=== PATIENT | male | born 1975 | race Caucasian/White ===

== ENCOUNTER 2022-02-15 18:48 | Observation (INO) | payer OTHER ==
--- OUTSIDE RECORDS SUMMARY | 2022-02-15 18:52 | XMS REPORT | Continuity of Care Document ---
:1975 Author Organization [facility] t Address [address] [place] [address] Care Team Providers Name Role Phone Nirali BARRIOS, Jonny Primary Care Physician JONNY FATIMA Attending Clinician Unavailable JONNY FATIMA Attending Clinician Unavailable CHRISTIANA CASE Attending Clinician Unavailable Ty Alvarado DO Attending Clinician Wojciech Rowe MD Attending Clinician Christiana Case MD Attending Clinician Kang Lopez MD Attending Clinician Lili Haywood MD Attending Clinician LILI HAYWOOD Attending Clinician Unavailable GERHARD Attending Clinician Unavailable Erin Estrada Attending Clinician [phone] , Kita Surg Spec Procedure Attending Clinician Unavailable [facility], [facility] Lab Main Attending Clinician Unavailable Doctor Unassigned, [place] Attending Clinician Unavailable CHRISTIANA CASE Admitting Clinician Unavailable Christiana Case MD Admitting Clinician GERHARD Admitting Clinician Unavailable Payers Payer Name Policy Type Policy Number Effective Date Expiration Date [id number] 2019 00:00:00 [facility] [id number] 2015 00:00:00 Problems Condition Condition Condition Status Onset Resolution Last Treating Co mments Source Name Details Category Date Date Treatment Clinician Date Food bolus Food bolus Disease Active U nivrito obstructio obstructio 2-13 it y of n of n of 00:00: [place] intestine intestine 00 [facility] dionte Branch Food Food Disease Active Overview: Meghan victoria impaction impaction 2-13 Formattin i ty of of of 00:00: g of this [place] esophagus, esophagus, 00 note Me dical initial initial might be Branch encounter encounter different from the original. Added automatic ally from request for surgery [id number] Allergies, Adverse Reactions, Alerts This patient has no known allergies or adverse reactions. Social History Social Habit Start Date Stop Date Quantity Comments Source Exposure to Not sure [facility] SARS-CoV-2 (event) Medica l Branch Tobacco use and 2020-03-10 2020-03-10 Former user [facility] exposure 00:00:00 00:00:00 Medical Branch Sex [facility] At [birth year] [facility] 00:[facility] 00[facility]00:00 [facility] Branch Smoking Status Start Date Stop Date Source Never smoker [facility] Medications Ordered Filled Start Stop Current Ordering Indication Dosage Frequency Signature Comments Components Source Medication Medication Date Date Medication? Clinician (SIG) Name Name pantoprazol Yes [id number] 40mg Take 1 Univers e 40 mg EC 2 tablet by ity of tablet 00:00: mouth [place] 00 daily. Medical Branch ciprofloxac ciprofloxac No ciprofloxa [place] in 0.3 % in 0.3 % hafsa 0.3 % Co mmuni eye drops eye drops eye drops ty INSTILL 1 INSTILL 1 INSTILL 1 Hospita DROP INTO DROP INTO DROP INTO l AFFECTED AFFECTED AFFECTED Cli nics EYE(S) BY EYE(S) BY EYE(S) BY OPHTHALMIC OPHTHALMIC OPHTHALMIC ROUTE EVERY ROUTE EVERY ROUTE 2 HOURS 2 HOURS EVERY 2 WHILE AWAKE WHILE AWAKE HOURS FOR 2 DAYS FOR 2 DAYS WHILE THEN 1 DROP THEN 1 DROP AWAKE FOR EVERY 4 HRS EVERY 4 HRS 2 DAYS WHILE AWAKE WHILE AWAKE THEN 1 FOR 5 DAYS FOR 5 DAYS DROP EVERY 4 HRS WHILE AWAKE FOR 5 DAYS prednisone prednisone No 1 BID prednisone [place] 20 mg 20 mg 20 mg Communi tablet Take tablet Take tablet ty 1 tablet 1 tablet Take 1 Hospi ta twice a day twice a day tablet l by oral by oral twice a Clinic s route for 5 route for 5 day by days. days. oral route for 5 days. Immunizations Ordered Filled Immunization Date Status Comments Sour e Immunization Name Name SARS-COV-2 COVID-19 2021-02-17 Completed Unive rsity of MODERNA VACCINE 00:00:00 [facility] SARS-COV-2 COVID-19 2020-12-31 Completed Unive rsity of MODERNA VACCINE 00:00:00 [facility] Vital Signs Vital Name Observation Time Observation Value Comments Source Systolic blood 2021-04-21 15:05:00 115 mm[Hg] Univer sity of pressure [facility] Diastolic blood 2021-04-21 15:05:00 80 mm[Hg] Unive rsity of [facility] Heart rate 2021-04-21 15:05:00 59 /min [facility] Body temperature 2021-04-21 15:05:00 36.83 Faby [facility] Respiratory rate 2021-04-21 15:05:00 18 /min [facility] Body height 2021-04-21 15:05:00 190.5 cm [facility] Body weight 2021-04-21 15:05:00 102.967 kg [facility] BMI 2021-04-21 15:05:00 28.37 kg/m2 [facility] Oxygen saturation in 2021-04-21 15:05:00 99 /min [facility] Arterial blood by [facility] Pulse oximetry Branch BP Diastolic 2020-04-17 00:00:00 76 mm[Hg] [facility] s Height 2020-04-17 00:00:00 74 [in_i] [facility] s BMI (Body Mass 2020-04-17 00:00:00 28 kg/m2 [facility]) [facility] s BP Systolic 2020-04-17 00:00:00 131 mm[Hg] [facility] s Body Weight 2020-04-17 00:00:00 3491.2 [oz_av] [facility] s Procedures This patient has no known procedures. Plan of Care Planned Activity Planned Date Details Comments Source [facility] Start End Encounter Admission Attending Care Care Encounter Source Date/Time Date/Time Type Type Clinicians Facility Department ID 2021-04-21 2021-04-21 Outpatient R ALEENA FATIMAJERSEYDemianJagdeep [facility] [id number] Univers 09:00:00 09:39:52 JONNY FATIMA ity of [facility] 2021-04-21 2021-04-21 Office Nirali [facility] [id number] Univers 09:00:00 09:39:52 Visit Emdemianjagdeep GEORGINA [id number] ity [id number] [phone] Md dical NAL 044 [facility] 2021-03-29 2021-03-29 Outpatient X [facility] JOSE [id number] Univers 09:50:00 21:00:00 ity of [facility] 2021-03-29 2021-03-29 Emergency Ty Alvarado [id number] Univers 09:50:00 21:00:00 Wojciech Rowe [id number] [facility]y [facility] [id number] [place] [phone] [facility] [address] [place] 2021-03-29 2021-03-29 Surgery AMI Lopez [id number] Univers 15:35:00 16:41:00 Kang PHILLIPS [id number] it y of [facility] [id number] [place] [phone] [facility] 103 Branch 2020-06-09 2020-06-09 [facility] [id number] Univers 07:58:16 08:13:16 Visit Lili Cano [id number] i [id number] [phone] Md dical nal 204 Branch [facility] 2020-06-09 2020-06-09 Outpatient R YOBANY [facility] [id number] Univers 08:00:00 08:00:00 [facility] 2020-04-17 2020-04-17 Outpatient SCHAUBROECK [facility] 101 [id number] [place] 12:17:00 12:17:00 _L 0304 [facility] 2020-04-17 2020-04-17 Outpatient Sean [facility] [id number] 00:00:00 00:00:00 Erin [id number] 2020-04-17 2020-04-17 Erin [facility] [place] - [place] 04 [place] 00:00:00 00:00:00 Sean [facility] MENTAL HEALTH TECH-BOAT CANVAS INSTALLER-C: Hospital - ty [address] [facility], [facility] Clinics [address], [place] [address] , Ph. 2020-03-10 2020-03-10 Office Lili Haywood [facility] [id number] Univers 15:16:34 17:11:00 Visit Rm, Adc Surg Spec Procedure [place] 3 [id number] it[id number] [phone] Md dical nal 204 [facility] 2020-03-10 2020-03-10 Outpatient R YOBANY [facility] [id number] Univers 15:30:00 15:30:00 [facility] 2020-03-05 2020-03-05 Outpatient R YOBANY [facility] [id number] Univers 09:15:00 09:15:00 [facility] 2020-03-05 2020-03-05 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 Cleaner Kita Caruso Lab Main [facility] [id number] Univers 08:59:17 09:14:17 Visit Liil Haywood [id number] ity [id number] [phone] Md dical nal 353 [facility] 2019-12-24 2019-12-24 Office Yobany [facility] [id number] Univers 09:54:39 10:23:45 Visit Lili Cano [id number] destiney dumont [facility] [id number] [phone] Md dical [address] 2019-12-24 2019-12-24 Outpatient R YOBANY [facility] [id number] Univers 10:00:00 10:00:00 LILI vaca [facility] 2019-12-24 2019-12-24 Orders Doctor MONICA [id number] Univers 00:00:00 00:00:00 Only Unassigned, JACQUELINE [id number] ity of [place] [facility] [id number] [place] [phone] [place] [address] Branch Results This patient has no known results.
[2022-02-15] MEDS ORDERED: NA CHLORIDE 0.9% 1,000 ML ONE (19:24)
[2022-02-15 19:46] LABS: Absolute Lymphocytes (CBC) 2.2 K/uL (0.7-4.9); Hematocrit 50.6 % (39.6-49.0); Lymphocytes % 16.8 % (15.3-44.8); MCV 88.7 fL (80-100); MPV 7.2 fL (7.6-11.3)
[2022-02-15 19:51] LABS: Protime INR 1.13
[2022-02-15 20:10] LABS: Bilirubin Direct 0.1 mg/dL (0-0.2); Bilirubin Total 0.3 mg/dL (0.2-1.0); Magnesium 1.6 mg/dL (1.6-2.4); Potassium 3.6 mmol/L (3.5-5.1); Protein, Total 7.8 g/dL (6.4-8.2); Troponin High Sensitivity 7.1 pg/mL (<58.9)
--- NOTE | 2022-02-15 20:16 | RAD REPORT ---
EXAM DESCRIPTION: CT - Head C Spine Mpr Wo Con - 02/15/2022 8:05 pm CLINICAL HISTORY: Head and neck injury status post fall. Head and neck pain COMPARISON: None. TECHNIQUE: Computed axial tomography of the head and cervical spine was obtained. Sagittal and coronal reconstruction was performed. All CT scans are performed using dose optimization technique as appropriate and may include automated exposure control or mA/KV adjustment according to patient size. FINDINGS: An intracranial bleed is not seen. The ventricles are normal in caliber. An extra-axial fluid collection is not noted.Fluid within the v isualized sinuses and mastoids is not seen A cervical fracture is not visualized. No dislocation is noted. Congenital nonunion posterior element s C1 IMPRESSION: No acute intracranial abnormality is seen. A cervical fracture is not visualized. If the patient continues to have symptoms to suggest intracra nial /spinal cord pathology then MRI would be recommended
--- NOTE | 2022-02-15 20:16 | RAD REPORT ---
EXAM DESCRIPTION: Sunny Single View02/15/2022 7:34 pm CLINICAL HISTORY: Chest pain COMPARISON: none FINDINGS: The lungs appear clear of acute infiltrate. The heart is normal size IMPRESSION: No acute abnormalities displayed
--- NOTE | 2022-02-15 20:55 | EDPHYS ---
Physician Documentation [facility] Name: Williams Diallo Age: 46 yrs Sex: Male : 1975 Arrival Date: 02/15/2022 Time: 18:49 Bed 7 Private MD: ED Physician Lokesh Granado HPI: 02/15 19:10 This 46 yrs old Male presents to ER via EMS with complaints of Syncope. cp 19:10 The patient has experienced syncope, lost consciousness. Onset: The symptoms/episode cp began/occurred just prior to arrival. Duration: This was a single episode, that lasted 1 minute(s). 19:10 Context: the episode(s) was witnessed, by co-worker(s), occurred at work, occurred cp while the patient was standing, Just prior to the episode the patient experienced dizziness, lightheadedness. Associated injury: Head/face: forehead and right anabaptism, abrasion. Associated signs and symptoms: Pertinent negatives: abdominal pain, chest pain, diaphoresis, headache, seizure, vomiting. Current symptoms: Currently, the patient is not experiencing any symptoms, the patient feels back to baseline. Historical: - Allergies: 18:49 No Known Allergies; ll1 - PMHx: 18:49 None; ll1 - PSHx: 18:49 None; ll1 - Immunization history:: Client reports having NOT received the Covid vaccine. - Social history:: Smoking status: Reported history of juuling and/or vaping. Patient denies any tobacco usage or history of. ROS: 19:15 Constitutional: Negative for body aches, chills, fever, poor PO intake. cp 19:15 Eyes: Negative for injury, pain, redness, and discharge. cp 19:15 ENT: Negative for drainage from ear(s), ear pain, sore throat, difficulty swallowing, difficulty handling secretions. 19:15 Cardiovascular: Negative for chest pain, palpitations. 19:15 Respiratory: Negative for cough, shortness of breath, wheezing. 19:15 Abdomen/GI: Negative for abdominal pain, nausea, vomiting, and diarrhea, black/tarry stool, rectal bleeding. 19:15 Neuro: Positive for syncope, Negative for altered mental status, headache, numbness, weakness. 19:15 All other systems are negative. Exam: 19:20 Constitutional: The patient appears in no acute distress, alert, awake, cp non-diaphoretic, non-toxic, well developed, well nourished. 19:20 Head/face: Noted is abrasion(s), that are moderate, of the forehead and right anabaptism. cp 19:20 Eyes: Periorbital structures: appear normal, Pupils: equal, round, and reactive to light and accomodation, Extraocular movements: intact throughout, Sclera: no appreciated abnormality, Lids and lashes: appear normal, bilaterally. 19:20 ENT: External ear(s): are unremarkable, Ear canal(s): are normal, clear, TM's: dullness, bilaterally, Nose: is normal, Mouth: Lips: moist, Oral mucosa: pink and intact, moist. 19:20 Neck: C-spine: vertebral tenderness, is not appreciated, crepitus, is not appreciated, ROM/movement: is normal, is supple, without pain, no range of motions limitations, no meningismus, no nuchal rigidity. 19:20 Chest/axilla: Inspection: normal. 19:20 Cardiovascular: Rate: normal, Rhythm: regular, Edema: is not appreciated, JVD: is not appreciated. 19:20 Respiratory: the patient does not display signs of respiratory distress, Respirations: normal, no use of accessory muscles, no retractions, labored breathing, is not present, Breath sounds: are clear throughout, no decreased breath sounds, no stridor, no wheezing. 19:20 Abdomen/GI: Inspection: abdomen appears normal, Palpation: abdomen is soft and non-tender, in all quadrants. 19:20 Back: pain, is absent, ROM is normal. 19:20 Neuro: Orientation: to person, place \T\ time. Mentation: is normal, Cerebellar function: Romberg testing is negative, Motor: moves all fours, strength is normal, Sensation: is normal. 19:42 ECG was reviewed by the Attending Physician. cp Vital Signs: 18:49 BP 98 / 74; Pulse 78; Resp 18; Temp 97.0(TE); Pulse Ox 96% on R/A; Weight 102.06 kg; ll1 Height 6 ft. 3 in. (190.50 cm); Pain 0/10; 19:30 BP 99 / 78; Pulse 90; Resp 17; Pulse Ox 99% on R/A; ll3 20:40 BP 108 / 70; Pulse 70; Resp 16; Pulse Ox 95% on R/A; ll3 18:49 Body Mass Index 28.12 (102.06 kg, 190.50 cm) ll1 NIH Stroke Scale Scores: 18:49 NIHSS Score: 1 ll1 MDM: 19:07 Patient medically screened. cp 20:50 Data reviewed: vital signs, nurses notes, lab test result(s), EKG, radiologic studies, cp CT scan, plain films. 20:50 Test interpretation: by ED physician or midlevel provider: ECG, plain radiologic cp studies. Counseling: I had a detailed discussion with the patient and/or guardian regarding: the historical points, exam findings, and any diagnostic results supporting the discharge/admit diagnosis, lab results, radiology results, the need for further work-up and treatment in the hospital. Physician consultation: Javier MCKEON was contacted at 20:45, regarding admission, to the telemetry unit. patient's condition, and will see patient in ED. 02/15 19:07 Order name: Basic Metabolic Panel; Complete Time: 20:19 cp / 20:19 Interpretation: Normal except: GLUC 171; CRE 1.41; GFR 63. cp 02/15 19:07 Order name: CBC with Diff; Complete Time: 20:19 cp 02/15 20:19 Interpretation: Normal except: WBC 13.30; RBC 5.70; HCT 50.6; MPV 7.2; ILSA% 74.9; NEUT cp A 9.9. 02/15 19:07 Order name: LFT's; Complete Time: 20:19 cp 02/15 19:07 Order name: Magnesium; Complete Time: 20:19 cp 02/15 19:07 Order name: NT PRO-BNP; Complete Time: 20:19 cp 02/15 19:07 Order name: PT-INR; Complete Time: 20:19 cp 02/15 19:07 Order name: Troponin HS; Complete Time: 20:19 cp / 20:26 Order name: Urine Microscopic Only; Complete Time: 22:16 cp 02/15 20:50 Order name: D-Dimer cp 02/15 20:52 Order name: LAB Add On cp 02/15 20:52 Order name: COVID-19/FLU A+B cp 02/15 21:01 Order name: Urine Dipstick-Ancillary; Complete Time: 22:16 EDMS 02/16 01:00 Order name: Troponin High Sensitivity EDMS 02/16 05:50 Order name: Troponin High Sensitivity EDMS 02/15 19:07 Order name: XRAY Chest (1 view); Complete Time: 20:19 cp 02/15 19:07 Order name: EKG; Complete Time: 19:08 cp 02/15 19:07 Order name: Cardiac monitoring; Complete Time: 19:38 cp 02/15 19:07 Order name: EKG - Nurse/Tech; Complete Time: 19:38 cp 02/15 19:07 Order name: IV Saline Lock; Complete Time: 19:38 cp 02/15 19:07 Order name: Labs collected and sent; Complete Time: 19:38 cp 02/15 19:07 Order name: O2 Per Protocol; Complete Time: 19:38 cp 02/15 19:07 Order name: O2 Sat Monitoring; Complete Time: 19:38 cp 02/15 19:09 Order name: CT Head C Spine; Complete Time: 20:19 cp 02/15 20:20 Interpretation: Reviewed report. cp 02/15 20:26 Order name: Urine Dipstick-Ancillary (obtain specimen); Complete Time: 21:00 cp 02/15 23:22 Order name: CT Chest For PE Angio ld1 02/15 23:26 Order name: US Extremity Venous W Compression Lawrence cp 02/16 05:54 Order name: Basic Metabolic Panel EDMS 02/16 05:55 Order name: CBC with Automated Diff EDMS 02/16 08:53 Order name: US EDMS EC:42 Rate is 80 beats/min. Rhythm is regular. KS interval is normal. QRS interval is normal. cp QT interval is normal. T waves are Inverted in lead aVR. Interpreted by me. Reviewed by me. Administered Medications: 19:38 Drug: NS 0.9% 1000 ml Route: IV; Rate: 1 bolus; Site: left antecubital; ll3 02/16 00:30 Follow up: Response: No adverse reaction; IV Status: Completed infusion; IV Intake: ll3 1000ml Disposition Summary: 02/15/22 20:54 Hospitalization Ordered Hospitalization Status: Observation cp Provider: Jean-Pierre Barton cp Condition: Stable cp Problem: new cp Symptoms: have improved cp Bed/Room Type: Standard cp Location: [facility] ER HOLD(02/15/22 23:04) bb Room Assignment: ERHOLD-(02/15/22 23:04) bb Diagnosis - Syncope cp Discharge Instructions: - Discharge Summary Sheet ll1 Forms: - Medication Reconciliation Form cp - SBAR form cp - Work release form ll1 NIH Stroke Scale - NIH Stroke Score Date: 02/15/2022 Time: 18:49 Total Score = 1 1a. Level of Consciousness (LOC) - 0(Alert) 1b. Level of Consciousness (LOC) (Month \T\ Age) - 0(Both) 1c. LOC Commands (Open \T\ Closes Eyes/Community Marketing Manager) - 0(Both) 2. Best Gaze (Lateral Gaze Paresis) - 0(Normal) 3. Visual Field Loss - 0(No visual loss) 4. Facial Palsy - 0(Normal) 5a. Left Arm: Motor (10-second hold) - 0(No drift) 5b. Right Arm: Motor (10-second hold) - 0(No drift) 6a. Left Leg: Motor (5-second hold - always test supine) - 0(No drift) 6b. Right Leg: Motor (5-second hold - always test supine) - 0(No drift) 7. Limb Ataxia (finger/nose \T\ heel/lockwood - test with eyes open) - 0(Absent) 8. Sensory Loss (pinprick arms/legs/face) - 0(Normal) 9. Best Language: Aphasia (description/naming/reading) - 0(No aphasia) 10. Dysarthria (speech clarity - read or repeat words) - 0(Normal) 11. Extinction and Inattention (visual/tactile/auditory/spatial/personal) - 1(Present) Initials: ll1 Signatures: Dispatcher [employer] EDMS Amira Whyte RN RN bb Javier Prater, BARTENDER HELPER-C BARTENDER HELPER-Cla1 Lokesh Harrington PA PA cp Lewis, Lynsay, RN RN ll1 Baldemar Dean RN RN ll3 Corrections: (The following items were deleted from the chart) 02/15 23:04 20:54 Telemetry/MedSurg (observation) cp zander 23:04 20:54 cp zander
--- NOTE | 2022-02-15 20:55 | ER ---
Nurse's Notes [facility] Name: Williams Diallo Age: 46 yrs Sex: Male : 1975 Arrival Date: 02/15/2022 Time: 18:49 Bed 7 Private MD: Diagnosis: Syncope Presentation: 02/15 18:49 Chief complaint: Patient states: Syncopal event while at work. Witnessed standing, felt ll1 dizzy, then fell to carpeted floor. Passed out for approximately 30 seconds. Abrasions noted to R side of forehead. EMS states: Pale and diaphoretic en route. BP was low during ride here 80's systolic. No medical history, no everyday meds. O2 6L NC given. Coronavirus screen: Vaccine status: Patient reports being unvaccinated. Client denies travel out of the [place] in the last 14 days. fatigue, nausea. Ebola Screen: Patient denies travel to an Ebola-affected area in the 21 days before illness onset. Initial Sepsis Screen: Does the patient meet any 2 criteria? No. Patient's initial sepsis screen is negative. Does the patient have a suspected source of infection? No. Patient's initial sepsis screen is negative. Risk Assessment: Do you want to hurt yourself or someone else? Patient reports no desire to harm self or others. Onset of symptoms was February 15, 2022. 18:49 Method Of Arrival: EMS: [facility] ll1 18:49 Acuity: KYLIE 2 ll1 Triage Assessment: 18:55 General: Appears in no apparent distress. Behavior is calm, cooperative, appropriate ll1 for age. Pain: Denies pain. Neuro: Reports dizziness, a syncopal episode weakness. Cardiovascular: No deficits noted. Respiratory: No deficits noted. GI: Reports nausea. Historical: - Allergies: 18:49 No Known Allergies; ll1 - PMHx: 18:49 None; ll1 - PSHx: 18:49 None; ll1 - Immunization history:: Client reports having NOT received the Covid vaccine. - Social history:: Smoking status: Reported history of juuling and/or vaping. Patient denies any tobacco usage or history of. Screenin/03 00:35 [facility] ED Fall Risk Assessment (Adult) History of falling in the last 3 months, ll3 including since admission Yes- single mechanical fall (1 pt) Confusion or Disorientation No (0 pts) Intoxicated or Sedated No (0 pts) Impaired Gait No (0 pts) Mobility Assist Device Used No (0 pt) Altered Elimination No (0 pt) Score/Fall Risk Level 0 - 2 = Low Risk Oriented to surroundings, Maintained a safe environment, Educated pt \T\ family on fall prevention, incl call for assistance when getting out of bed. Abuse screen: Denies threats or abuse. Denies injuries from another. Nutritional screening: No deficits noted. Tuberculosis screening: No symptoms or risk factors identified. Assessment: 02/15 19:20 General: Appears uncomfortable, Behavior is calm, cooperative. Pain: Complains of pain ll3 in face. Neuro: Level of Consciousness is awake, alert, obeys commands, Oriented to person, place, time, situation. Cardiovascular: Rhythm is sinus rhythm. Respiratory: Respiratory effort is even, unlabored, Respiratory pattern is regular, symmetrical. Derm: Rash noted that is red, on face. Vital Signs: 18:49 BP 98 / 74; Pulse 78; Resp 18; Temp 97.0(TE); Pulse Ox 96% on R/A; Weight 102.06 kg; ll1 Height 6 ft. 3 in. (190.50 cm); Pain 0/10; 19:30 BP 99 / 78; Pulse 90; Resp 17; Pulse Ox 99% on R/A; ll3 20:40 BP 108 / 70; Pulse 70; Resp 16; Pulse Ox 95% on R/A; ll3 18:49 Body Mass Index 28.12 (102.06 kg, 190.50 cm) ll1 NIH Stroke Scale Scores: 18:49 NIHSS Score: 1 ll1 ED Course: 18:49 Patient arrived in ED. ll1 18:49 Arm band placed on Patient placed in an exam room, on a stretcher. ll1 18:55 Triage completed. ll1 18:55 Lokesh Harrington [facility]. cp 18:55 Noelle William MD is Attending Physician. cp 19:11 Lokesh Granado MD is Attending Physician. cp 19:11 Grace Coto is Primary Nurse. tw5 19:36 XRAY Chest (1 view) In Process Unspecified. EDMS 19:38 Initial lab(s) drawn, by me, sent to lab. Inserted saline lock: 22 gauge in left ll3 antecubital area, using aseptic technique. Blood collected. 20:07 CT Head C Spine In Process Unspecified. EDMS 20:54 Jean-Pierre Barton MD is Hospitalizing Provider. cp 02/16 00:36 Patient has correct armband on for positive identification. Placed in gown. Bed in low ll3 position. Call light in reach. Side rails up X 1. Adult w/ patient. 00:36 No provider procedures requiring assistance completed. Patient admitted, IV remains in ll3 place. Administered Medications: 02/15 19:38 Drug: NS 0.9% 1000 ml Route: IV; Rate: 1 bolus; Site: left antecubital; ll3 02/16 00:30 Follow up: Response: No adverse reaction; IV Status: Completed infusion; IV Intake: ll3 1000ml Medication: 00:36 VIS not applicable for this client. ll3 Intake: 00:30 IV: 1000ml; Total: 1000ml. ll3 Outcome: 02/15 20:54 Decision to Hospitalize by Provider. cp 02/16 00:36 Admitted to ER Hold. Please see [employer] for further documentation. ll3 Condition: stable Instructed on the need for admit. 12:31 Patient left the ED. ll1 NIH Stroke Scale - NIH Stroke Score Date: 02/15/2022 Time: 18:49 Total Score = 1 1a. Level of Consciousness (LOC) - 0(Alert) 1b. Level of Consciousness (LOC) (Month \T\ Age) - 0(Both) 1c. LOC Commands (Open \T\ Closes Eyes/Fish Farmer) - 0(Both) 2. Best Gaze (Lateral Gaze Paresis) - 0(Normal) 3. Visual Field Loss - 0(No visual loss) 4. Facial Palsy - 0(Normal) 5a. Left Arm: Motor (10-second hold) - 0(No drift) 5b. Right Arm: Motor (10-second hold) - 0(No drift) 6a. Left Leg: Motor (5-second hold - always test supine) - 0(No drift) 6b. Right Leg: Motor (5-second hold - always test supine) - 0(No drift) 7. Limb Ataxia (finger/nose \T\ heel/lockwood - test with eyes open) - 0(Absent) 8. Sensory Loss (pinprick arms/legs/face) - 0(Normal) 9. Best Language: Aphasia (description/naming/reading) - 0(No aphasia) 10. Dysarthria (speech clarity - read or repeat words) - 0(Normal) 11. Extinction and Inattention (visual/tactile/auditory/spatial/personal) - 1(Present) Initials: ll1 Signatures: Dispatcher [employer] EDMS Lokesh Harrington PA PA cp Lewis, Lynsay RN RN ll1 Grace Coto tw5 Baldemar Dean RN RN ll3
[2022-02-15 21:00] LABS: Urine Blood Trace-intact (Negative); Urine Glucose Negative (Negative); Urine Protein 2+ (Negative); Urine Specific Gravity 1.025 (1.005-1.030)
[2022-02-15 21:18] LABS: Urine Bacteria None Seen /HPF (<20); Urine Mucus 1+ /HPF (None Seen); Urine RBC <5 /HPF (None Seen)
[2022-02-15 22:21] LABS: SARS-COV-2 RT PCR NEGATIVE (NEGATIVE)
--- NOTE | 2022-02-15 22:29 | P.HP ---
Certification for Inpatient Patient admitted to: Observation With expected LOS: <2 Midnights Patient will require the following post-hospital care: None Practitioner: I am a practitioner with admitting privileges, knowledge of patient current condition, hospital course, and medical plan of care. Services: Services provided to patient in accordance with Admission requirements found in Title 42 Section 412.3 of the Code of Federal Regulations <MoiJavier Rosario - Last Filed: 02/15/22 22:27> Patient History Date of Service: 02/15/22 Reason for admission: Syncope History of Present Illness: 46-year-old otherwise healthy male presented to the emergency department after having a syncopal event at work. He reports the event took place over the course for approximately 30 minutes and began with itching of the right hand followed by itching of all the extremities, he began to walk around as he felt this may make him feel better he began to feel lightheaded as if he is in a pass out so he sat into a chair followed by losing consciousness. He fell and hit his head on the floor he reports positive LOC. Prior to episode of syncope he denies any palpitations, chest pain, headache. He denies any abdominal pain. Upon arrival to the ED patient's blood pressure was soft 90s systolic. He was evaluated in the emergency department his labs were significant for mild leukocytosis, creatinine 1.41, GFR 63, glucose 171. Chest x-ray negative for acute findings CT head/C-spine also negative for acute findings. ED provider wishes to admit under observation for syncope. - Past Medical/Surgical History -: None -: None Psychosocial/ Personal History: Patient was at home with family - Family History Family History: Reviewed- Non-Contributory - Social History Smoking Status: Never smoker Alcohol use: No CD- Drugs: No Caffeine use: Yes Place of Residence: Home <Javier Prater - Last Filed: 02/15/22 22:27> Date of Service: 02/16/22 <Jean-Pierre Barton - Last Filed: 02/16/22 12:57> Review of Systems 10-point ROS is otherwise unremarkable Cardiovascular: Light Headedness, Other (Syncope), As per HPI <Javier Prater - Last Filed: 02/15/22 22:27> Physical Examination - Physical Exam General: Alert, In no apparent distress, Oriented x3 HEENT: Atraumatic, PERRLA, Mucous membr. moist/pink, EOMI, Sclerae nonicteric Neck: Supple, 2+ carotid pulse no bruit, No LAD, Without JVD or thyroid abn ormality Respiratory: Clear to auscultation bilaterally, Normal air movement Cardiovascular: No edema, Regular rate/rhythm, Normal S1 S2 Capillary refill: <2 Seconds Gastrointestinal: Normal bowel sounds, No tenderness Musculoskeletal: No tenderness Integumentary: No rashes Neurological: Normal speech, Normal strength at 5/5 x4 extr, Normal tone, Normal affect - Studies Laboratory Data (last 24 hrs) 02/15/22 19:31: PT 12.4, INR 1.13 02/15/22 19:31: WBC 13.30 H, Hgb 17.4, Hct 50.6 H, Plt Count 355 02/15/22 19:31: Sodium 137, Potassium 3.6, BUN 17, Creatinine 1.41 H, Glucose 171 H, Magnesium 1.6, Total Bilirubin 0.3, AST 20, ALT 43, Alkaline Phosphatase 49 <Javier Prater - Last Filed: 02/15/22 22:27> - Studies Laboratory Data (last 24 hrs) 02/15/22 19:31: PT 12.4, INR 1.13 02/15/22 19:31: WBC 13.30 H, Hgb 17.4, Hct 50.6 H, Plt Count 355 02/15/22 19:31: Sodium 137, Potassium 3.6, BUN 17, Creatinine 1.41 H, Glucose 171 H, Magnesium 1.6, Total Bilirubin 0.3, AST 20, ALT 43, Alkaline Phosphatase 49 <Jean-Pierre Barton - Last Filed: 02/16/22 12:57> Assessment and Plan - Plan Assessment: Syncope Plan: Syncope: Unclear etiology, will monitor on telemetry for any arrhythmias, trend troponins. Echocardiogram is ordered. Continue IV fluids we will obtain orthostatic vital signs. Patient states still feeling "weak". He denies any chest pain, palpitations or headache. DVT PPX: Lovenox Code status: Full Discharge Plan: Home Plan to discharge in: 24 Hours - Advance Directives Does patient have a Living Will: No Does patient have a Durable POA for Healthcare: No - Code Status/Comfort Care Code Status Assessed: Yes (Full code) Critical Care: No Time Spent Managing Pts Care (In Minutes): 55 <Javier Prater - Last Filed: 02/15/22 22:27> Physician Review: Patient Assessed, Agree with Above Assessment and Plan <Jean-Pierre Barton - Last Filed: 02/16/22 12:57>
[2022-02-16] MEDS: Ringers Lactate 1,000 ML IV SCH ×2 (00:11→10:11)
[2022-02-16] MEDS ORDERED: ONDANSETRON 4 MG/2 ML VIAL IV PRN (00:11)
[2022-02-16] MEDS ORDERED: ACETAMINOPHEN 500 MG TAB PO PRN (00:11)
[2022-02-16] MEDS ORDERED: Ringers Lactate 1,000 ML IV ONE ×2 (00:19→07:59)
[2022-02-16 00:36] VITALS: BMI 28.1
[2022-02-16 05:46] LABS: Absolute Lymphocytes (CBC) 2.4 K/uL (0.7-4.9); Hematocrit 40.3 % (39.6-49.0); Lymphocytes % 41.3 % (15.3-44.8); MCV 88.1 fL (80-100); MPV 7.1 fL (7.6-11.3); RBC Red Blood Cell Count 4.58 M/uL (4.33-5.43)
[2022-02-16 05:47] LABS: Potassium 4.2 mmol/L (3.5-5.1)
[2022-02-16] MEDS ORDERED: ENOXAPARIN 40 MG/0.4 ML SQ ONE (07:59)
--- NOTE | 2022-02-16 08:32 | EKG ---
Test Date: 2022-02-15 Test Time: 19:36:34 Special Projects Coordinator: RV MEASUREMENT RESULTS: Intervals: Rate: 80 MA: 172 QRSD: 82 QT: 360 QTc: 415 [place]: P: 64 MA: 172 QRS: 56 T: 16 INTERPRETIVE STATEMENTS: Normal sinus rhythm with sinus arrhythmia Low voltage QRS Borderline ECG No previous ECG available for comparison Electronically Signed On 02-16-22 08:31:09 CONCRETE GUN OPERATOR by Frank Collins
--- NOTE | 2022-02-16 08:53 | RAD REPORT ---
EXAM DESCRIPTION: USExtrem Venous W Compress Bil02/16/2022 12:18 am CLINICAL HISTORY: Elevated D-dimer COMPARISON: none FINDINGS: The common femoral, superficial femoral, greater saphenous, popliteal and posterior tibial veins bilaterally are compressible and demonstrate augmentation. Doppler demonstrates good flow. Grayscale, color and spectral analysis performed on all vessels IMPRESSION: No evidence of deep venous thrombosis involving either lower extremity.
[2022-02-16] MEDS ORDERED: ENOXAPARIN 40 MG/0.4 ML SQ SCH (09:00)
--- NOTE | 2022-02-16 12:09 | P.DS ---
Admission Date: 02/15/22 Discharge Date: 02/16/22 Disposition: ROUTINE DISCHARGE Discharge Condition: GOOD Reason for Admission: Syncope Consultations: 1. Cardiology Hospital Course: DIAGNOSES: # Syncope, suspect Vasovagal # KDIGO Stage I Acute Kidney Injury (resolved) # Elevated D-Dimer HOSPITAL COURSE: Mr. Williams Diallo is a pleasant 46 year old male with no reported past medical history who was admitted to the [facility] on 02/15/2022 for syncope. He was admitted to the Medicine service. During his hospitalization, he expe rienced no recurrent episodes of syncope. His orthostatic vital signs were negative. His CT head/cervical spine revealed, "no acute intracranial abnormality is seen." His d-dimer returned elevated at 13,751. Bilateral lower extremity Doppler revealed, "no evidence of deep venous thrombosis involving either lower extremity." His CT chest angiogram revealed, "no pulmonary embolus. No acute cardiopulmonary findings." His troponin trend was 7.1, 4.7, and 5.3, respectively. Cardiology was consulted and he was evaluated by Dr. Collins. A transthoracic echocardiogram was performed, and although not formally read, it was reviewed by Dr. Collins. He stated that the echocardiogram was within normal limits and displayed no obvious cause for his syncope. Dr. Collins has cleared h im for discharge home with an outpatient stress test. On 02/16/2022, he was seen on morning rounds and deemed medically stable for discharge. He was discharged with instructions to schedule follow-up appointments with his PCP and with Cardiology (Dr. Collins). He was given the opportunity to ask questions and reported no further questions. Furthermore, all questions were answered to the best of my ability. A copy of this discharge summary will be sent to the above providers to facilitate continuity of care. Today, I personally spent 25 minutes on his case, of which greater than 50% of the time was spent in patient education, counseling, and coordination of care as described above. Vital Signs/Physical Exam: Temp Pulse Resp BP Pulse Ox 97.5 F 53 15 107/65 97 02/16/22 09:40 02/16/22 09:40 02/16/22 09:40 02/16/22 09:40 02/16/22 09:40 General: Alert, In no apparent distress, Oriented x3 HEENT: PERRLA, Mucous membr. moist/pink, Other (abrasion to right forehead), EOMI, Sclerae nonicteric Neck: JVD not distended Respiratory: Clear to auscultation bilaterally, Normal air movement Cardiovascular: No edema, Regular rate/rhythm, Normal S1 S2, No gallops, No rubs, No murmurs Gastrointestinal: Normal bowel sounds, Soft and benign, Non-distended Musculoskeletal: No clubbing Integumentary: No rashes Neurological: Normal gait, Normal speech, Normal tone, Cranial nerves 3-12 intact, Normal affect Laboratory Data at Discharge: WBC 5.90 K/uL (4.3-10.9) 02/16/22 05:21 Hgb 14.0 g/dL (13.6-17.9) D 02/16/22 05:21 Hct 40.3 % (39.6-49.0) 02/16/22 05:21 Plt Count 298 K/uL (152-406) 02/16/22 05:21 PT 12.4 SECONDS (9.5-12.5) 02/15/22 19:31 INR 1.13 02/15/22 19:31 Sodium 141 mmol/L (136-145) 02/16/22 05:21 Potassium 4.2 mmol/L (3.5-5.1) D 02/16/22 05:21 BUN 16 mg/dL (7-18) 02/16/22 05:21 Creatinine 1.16 mg/dL (0.70-1.30) 02/16/22 05:21 Glucose 103 mg/dL (74-106) 02/16/22 05:21 Magnesium 1.6 mg/dL (1.6-2.4) 02/15/22 19:31 Total Bilirubin 0.3 mg/dL (0.2-1.0) 02/15/22 19:31 AST 20 U/L (15-37) 02/15/22 19:31 ALT 43 U/L (16-61) 02/15/22 19:31 Alkaline Phosphatase 49 U/L (45-117) 02/15/22 19:31 Physician Discharge Instructions: 1. Please call and schedule a follow-up appointment with your PCP in 3-5 days 2. Please call and schedule a follow-up appointment with Cardiology (Dr. Collins) in 3-5 days - He will schedule you for an outpatient cardiac stress test Diet: AHA Activity: Ad wyatt Followup: Frank Collins MD [ACTIVE - CAN ADMIT] - Time spent managing pt's care (in minutes): 25
[2022-02-16 12:21] VITALS: BP 135/81; TEMP 97.6
[2022-02-16 12:38] VITALS: O2SAT 95
--- NOTE | 2022-02-16 15:13 | RAD REPORT ---
EXAM DESCRIPTION: CT - Chest For Pe Angio - 02/16/2022 6:43 am CLINICAL HISTORY: 46 years Male Pulmonary embolism (PE) suspected, positive D-dimer TECHNIQUE: Contiguous axial images obtained through the chest were obtained from the thoracic inlet to the level of the upper abdomen during the pulmonary arterial phase of intravenous contrast adminis tration. Coronal and sagittal reformatted and multiplanar MIP images provided. This CT exam was performed according to our departmental dose-optimization program, which includes on e or more of the following dose reduction techniques: automated exposure control, adjustment of the m A and/or kV according to patient size, and/or use of iterative reconstruction technique. COMPARISON: No prior exams provided for comparison. FINDINGS: There is no visualized pulmonary embolus. The thoracic aorta is normal without aneurysm or dissection. The heart is normal in size without emily cardial effusion. Aside from minimal dependent atelectasis bilaterally, the lungs are clear without consolidation, effu erin, or pneumothorax. No lymphadenopathy in the chest. Small and distal esophageal diverticulum. There are no visualized acute osseous or upper abdominal ab normalities. IMPRESSION: No pulmonary embolus. No acute cardiopulmonary findings. Electronically signed by: Laura Deutsch MD 02/16/2022 12:26 AM STAKES PLAYER Due to temporary technical issues with the PACS/Fluency reporting system, reports are being signed by the in house radiologists without review as a courtesy to insure prompt reporting. The interpreting radiologist is fully responsible for the content of the report.
--- NOTE | 2022-02-17 06:49 | ECHO ---
HEIGHT: 6 ft 3 in WEIGHT: 225 lb 0.061 oz DATE OF STUDY: 02/16/[address]: Javier Prater NP 2-DIMENSIONAL: YES M.MODE: YES DOPPLER: YES COLOR FLOW: YES TDS: PORTABLE: YES DEFINITY: BUBBLE STUDY: DIAGNOSIS: SYNCOPE CARDIAC HISTORY: CATHERIZATION: NO SURGERY: NO PROSTHETIC VALVE: NO PACEMAKER: NO MEASUREMENTS (cm) DIASTOLIC (NORMALS) SYSTOLIC (NORMALS) IVSd 1.0 (0.6-1.2) LA Diam 2.9 (1.9-4.0) LVEF 69% LVIDd 4.5 (3.5-5.7) LVIDs 2.7 (2.0-3.5) %FS 39% LVPWd 1.1 (0.6-1.2) Ao Diam 2.4 (2.0-3.7) 2 DIMENSIONAL ASSESSMENT: RIGHT ATRIUM: NORMAL LEFT ATRIUM: NORMAL RIGHT VENTRICLE: NORMAL LEFT VENTRICLE: NORMAL TRICUSPID VALVE: NORMAL MITRAL VALVE: NORMAL PULMONIC VALVE: NORMAL AORTIC VALVE: NORMAL PERICARDIAL EFFUSION: NONE AORTIC ROOT: NORMAL LEFT VENTRICULAR WALL MOTION: NORMAL DOPPLER/COLOR FLOW: NORMAL COMMENTS: 1. NORMAL LEFT VENTRICULAR EJECTION FRACTION 60-65% 2. NORMAL WALL MOTION 3. NORMAL STUDY TECHNOLOGIST: NOHEMY LUGO
--- NOTE | 2022-02-23 19:13 | CON ---
Date of Consultation: 02/16/2022 Reason For Consultation: Syncope and atypical chest pain. History Of Present Illness: Mr. Diallo is 46, has no significant past medical history. Comes in with an episode of syncope that was sudden, had been working outside and may have been dehydrated, b ut he did not feel like he was, also complained of some chest pain in the left posterior shoulder rad iating to the back with exertion. Denied any nausea, vomiting, diaphoresis, PND, orthopnea, pedal ed sergio, or palpitation. Denied any fever or chills. Workup so far has been negative. Past Medical History: Unremarkable. Allergies: NONE. Review of Systems: Negative. Social History: Negative. Family History: Negative. Physical Examination: Vital Signs: Stable. Afebrile. HEENT: Negative. Neck: Supple. No bruit. Chest: Clear. Cardiac: Revealed a regular rhythm and rate. No murmurs, gallops, or rubs. Abdomen: Benign. Extremities: Revealed no clubbing, cyanosis, or edema. Diagnostic Data: All within normal limit. Impression And Plan: 1.Syncope. 2.Atypical chest pain. Negative workup so far. I think he deserves to have an event monitor and a routine stress test, and I will see him in the office in the near future. JARRED/ARTUR Voice ID: [id number] Report ID: [id number]
== END 2022-02-16 12:22 | disposition home or self-care (01) ==
LOC: ER 18:48 → ERHOLD 21:37 → INTOOBSV 21:37
PROVIDERS: ADMIT Internal Medicine; ATTEND Internal Medicine
DX: R55 Syncope and collapse (principal); N17.9 Acute kidney failure, unspecified; R79.1 Abnormal coagulation profile; Z20.822 Contact with and (suspected) exposure to COVID-19; W18.39XA Other fall on same level, initial encounter; Y93.89 Activity, other specified; Y92.89 Other specified places as the place of occurrence of the external cause; Y99.0 Civilian activity done for income or pay
CPT/HCPCS: 96361; 93005; 93306; 85025 ×2; 80048 ×2; 36415; 83735; 85610; 85379; 80076; 84484 ×3; 83880; 0240U; 70450; 72125; 71275; 71045; 93970; 96360; 99285; Q9967; J7120 ×2; J7030; 81003; 81015; G0378; J1650